=== PATIENT | male | born 1980 | race Caucasian/White ===

== ENCOUNTER → 2021-08-25 | Outpatient (CLI) | payer OTHER ==
[~2021-08-25] MED LIST: PROHANCE 279.3MG/ML 15ML VIAL As Ordered ONE
--- NOTE | 2021-08-25 11:13 | REP ---
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 COMPARISON: None. TECHNIQUE: Multiple sequences obtained in the axial coronal planes prior to and following the intravenous administration of 14 mL ProHance. FINDINGS: The liver is normal in size. No liver mass or nodule is seen. Spleen is normal in size. There are 2 benign nonenhancing subcentimeter cystic structures in the inferior aspect of the spleen. The adrenal glands are normal. No pancreatic abnormality is seen. There is no pancreatic duct dilatation. Gallbladder demonstrates a subcentimeter filling defect in the dependent portion probably representing a gallstone. There is no intrahepatic or extrahepatic biliary dilatation. There is no hydronephrosis. There is a subcentimeter cyst in the lower pole the left kidney. There is no adenopathy or free fluid in the abdomen. IMPRESSION: No evidence of metastatic disease. Subcentimeter gallstone in the gallbladder. <Electronically signed by Trey Delgado > 08/25/21 1727
--- NOTE | 2021-08-25 15:45 | REP ---
INDICATION: TESTICULAR CA EVAL FOR METS COMPARISON: None. TECHNIQUE: PA and lateral. FINDINGS: The mediastinum and cardiac silhouette are normal. There is a 1 cm possibly calcified nodule in the right mid lung zone. Remainder of the lung selby are well aerated and clear. No acute consolidation, effusion, or pneumothorax.. The skeletal structures are intact and normal. IMPRESSION: Suspected 1 cm possibly calcified nodule in the right mid lung zone. No prior examinations are available for comparison. Consider chest CT for further investigation. <Electronically signed by Saleem Pedroza > 08/25/21 3019
== END ==
LOC: M RAD 08-17 16:22
PROVIDERS: ATTEND Urology
DX: C62.11 Malignant neoplasm of descended right testis (principal); N50.89 Other specified disorders of the male genital organs
CPT/HCPCS: 71046; 74183; A9576

== ENCOUNTER → 2022-04-30 | Outpatient (CLI) | payer OTHER ==
[~2022-04-30] MED LIST changes: -PROHANCE 279.3MG/ML 15ML VIAL As Ordered ONE; +PROHANCE 279.3MG/ML 15ML VIAL ONE
== END ==
LOC: M PLAIMG 14:57
PROVIDERS: ATTEND Urology
DX: C62.11 Malignant neoplasm of descended right testis (principal)
CPT/HCPCS: 71046; 74183; A9576